=== PATIENT | female | born 1985 | race Hispanic/Latino ===

== ENCOUNTER 2024-01-10 07:08 | Emergency (ER) | payer OTHER ==
[~2024-01-10] VITALS: Ht 157.5 cm; Wt 56.2 kg
[2024-01-10 07:43] LABS: APPEARANCE,URINE CLEAR (CLEAR); BILIRUBIN,URINE NEGATIVE (NEGATIVE); COLOR,URINE LIGHT-YELLOW (YELLOW); GLUCOSE, URINE (UA) NEGATIVE (NEGATIVE); KETONES,URINE NEGATIVE (NEGATIVE); LEUKOCYTE ESTERASE ,URINE NEGATIVE Leu/uL (NEGATIVE); NITRATE,URINE NEGATIVE (NEGATIVE); OCCULT BLOOD,URINE NEGATIVE (NEGATIVE); PROTEIN,URINE NEGATIVE (NEGATIVE); UROBILINOGEN,URINE 0.2 mg/dL (0.2-1.0)
[2024-01-10 07:47] LABS: ADD UA MICROSCOPIC NO
[2024-01-10] MEDS: KETOROLAC 15MG/ML VIAL (15MG/ML) IM ONE (09:39)
[2024-01-10] MEDS ORDERED: IBUP-2070 PO (11:32)
[2024-01-10 11:37] VITALS: BP 128/72; PULSE 68; RESP 18; O2SAT 100
== END 2024-01-10 11:40 | disposition home or self-care (01) ==
LOC: EDH 07:08
DX: S62.392A Other fracture of third metacarpal bone, right hand, initial encounter for closed fracture (principal); M54.50 Low back pain, unspecified; M54.2 Cervicalgia; Z90.710 Acquired absence of both cervix and uterus; V49.88XA Car occupant (driver) (passenger) injured in other specified transport accidents, initial encounter; Y93.I9 Activity, other involving external motion; Y92.488 Other paved roadways as the place of occurrence of the external cause; Y99.8 Other external cause status
CPT/HCPCS: 99285; 72125; 81003; 81025; 73130; 29125; 96372; J1885

== ENCOUNTER 2025-05-24 11:01 | Emergency (ER) | payer SELFPAY ==
[~2025-05-24] VITALS: Ht 157.5 cm; Wt 54.4 kg
[~2025-05-24 11:01] MED LIST: IBUP-1492 PO
--- NOTE | 2025-05-24 11:30 | EKG ---
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
--- NOTE | 2025-05-24 11:46 | ERN ---
ED Note History of Present Illness Stated Complaint: ANXIETY Chief Complaint: Anxiety/Panic Attack Time Seen by MD: 11:03 Time Seen by Midlevel: 11:05 Dictation: 39-year-old female with no medical problems coming in for complaints of anxiety that led to her having chest pain. Patient states it is episode started while she was driving. Patient states she has had these symptoms for the last year. Does not take any medications for anxiety. Denies any cough, congestion, shortness a breath, fever. Allergies: Coded Allergies: No Known Drug Allergies (Unverified Allergy, Unknown, 01/10/24) Home Meds Active Scripts Ibuprofen (Ibuprofen) 600 Mg Tablet, 600 MG PO Q6H PRN for PAIN, #20 TAB Prov:TITO COLE MD 01/10/24 Past Medical History Past Medical History: No Pertinent History Surgical History: Hysterectomy Review of System Dictation Constitutional: Negative for fever,chills, and weight loss Eyes: Negative for injury, pain,redness, and discharge ENT: Negative for injury,pain or swelling Cardiovascular: Complaining of chest pain, no palpitations, and no edema Respiratory: Negative for shortness of breath, cough, and wheezing, Abdomen/GI: Negative for abdominal pain, nausea, vomiting, diarrhea, and constipation Back: Negative for injury and pain : Negative for injury, bleeding and discharge MS/Extremity: Negative for injury and deformity Skin: Negative for rash, and discoloration Neuro: Negative for headache, weakness, numbness, tingling, and seizure Psych: Negative for suicide ideation, homicidal ideation, and hallucinations, anxious Review of Systems: was completed Initial Vital Sign VS Vital Signs Date Time Temp Pulse Resp B/P (MAP) Pulse Ox O2 Delivery O2 Flow Rate FiO2 05/24/25 11:03 98.2 128 22 139/95 97 Room Air 0 05/24/25 11:07 21 Physical Exam Dictation General: awake, alert, NAD Head/Face: Normocephalic, atraumatic Eyes: PERRL, EOMI, vision at baseline ENT: oral cavity clear, TMs clear, no signs of infection Neck: Trachea midline, supple, no nuchal rigidity Cardiovascular: RRR, normal S1/S2, No MRGs, no JVD Respiratory: CTAB, no respiratory distress, No rales or wheezes Abdomen: Soft, non-tender, non-distended, normal bowel sounds, no guarding or rebound. Skin: Warm, dry, normal turgor, no rash MS/Extremity: Pulses equal, no cyanosis, neurovascular intact, FROM Neuro: COAx4, GCS 15, strength 5/5, CN 2-12 intact, normal cerebellar exam, normal gait, Psych: Normal behavior, mood, and affect normal Results (Laboratory/Radiology) Laboratory/Radiology Laboratory Tests Test 05/24/25 11:26 05/24/25 12:11 White Blood Count 10.6 K/uL (4.8-10.8) Red Blood Count 4.60 MIL/uL (4.00-5.50) Hemoglobin 14.3 g/dL (12.0-16.0) Hematocrit 42.5 % (36-48) Mean Corpuscular Volume 92.4 fL (79-99) Mean Corpuscular Hemoglobin 31.1 pg (27.0-33.0) Mean Corpuscular Hemoglobin Concent 33.6 g/dL (32.0-36.0) Red Cell Distribution Width 12.9 % (11.0-15.5) Platelet Count 269 K/uL (130-400) Mean Platelet Volume 10.3 fL (7.5-10.5) Immature Granulocyte % (Auto) 0.4 % (0-1) Neutrophils (%) (Auto) 67.0 % (40.0-77.0) Lymphocytes (%) (Auto) 23.9 % (21.0-51.0) Monocytes (%) (Auto) 7.2 % (3.0-13.0) Eosinophils (%) (Auto) 0.6 % (0.0-8.0) Basophils (%) (Auto) 0.9 % (0.0-5.0) Neutrophils # (Auto) 7.1 K/uL (1.8-7.7) Lymphocytes # (Auto) 2.5 K/uL (1.0-4.8) Monocytes # (Auto) 0.8 K/uL (0.1-1.0) Eosinophils # (Auto) 0.06 K/uL (0.00-0.70) Basophils # (Auto) 0.09 K/uL (0.00-0.20) Absolute Immature Granulocyte (auto 0.04 K/uL (0-1) Nucleated Red Blood Cells 0.0 % (0.0-0.19) Sodium Level 137 mmol/L (136-145) Potassium Level 3.7 mmol/L (3.5-5.1) Chloride Level 98 mmol/L (101-111) L Carbon Dioxide Level 24 mmol/L (21-32) Blood Urea Nitrogen 5 mg/dL (7-18) L Creatinine 0.6 mg/dL (0.5-1.0) Glomerular Filtration Rate Calc 116 mL/min (>90) Random Glucose 79 mg/dL (70-105) Total Calcium 10.0 mg/dL (8.5-10.1) Troponin I High Sensitivity 8 ng/L (4-50) Urine Color LIGHT-YELLOW (YELLOW) Urine Appearance CLEAR (CLEAR) Urine pH 5.5 (5.0-8.0) Urine Specific [place] 1.008 (1.001-1.031) Urine Protein NEGATIVE mg/dL (NEGATIVE) Urine Glucose (UA) NEGATIVE mg/dL (NEGATIVE) Urine Ketones NEGATIVE mg/dL (NEGATIVE) Urine Occult Blood NEGATIVE (NEGATIVE) Urine Nitrate NEGATIVE (NEGATIVE) Urine Bilirubin NEGATIVE mg/dL (NEGATIVE) Urine Urobilinogen 0.2 mg/dL (0.2-1.0) Urine Leukocyte Esterase NEGATIVE Sergio/uL Urine Opiates Screen NEGATIVE (NEGATIVE) Urine Barbiturates Screen NEGATIVE (NEGATIVE) Urine Phencyclidine Screen NEGATIVE (NEGATIVE) Urine Amphetamines Screen NEGATIVE (NEGATIVE) Urine Benzodiazepines Screen NEGATIVE (NEGATIVE) Urine Cocaine Screen NEGATIVE (NEGATIVE) Urine Marijuana (THC) Screen NEGATIVE (NEGATIVE) Labs Reviewed?: Yes EKG Comment: EKGs done at 11:27 a.m.. Sinus tachycardia at 1:13 a.m.. No STEMI interpreted by ER MD X-RAY Comment: [address] [address] IMAGING REPORT Signed PATIENT: ANIRUDH SARAVIA MR#: [id number] : 1985 SEX: F AGE: 39 LOCATION: [facility] ORDER 08 STATUS: REG ER REPORT#: [id number] SERVICE 110 REASON: cp ORDERING PHYSICIAN: MCKEE,CLARIBEL HAZARD MITIGATION OFFICER PROCEDURE: CXR1VW - CHEST 1VW EXAM: CR Chest, 1 View. CLINICAL HISTORY: cp COMPARISON: None provided. FINDINGS: LUNGS: The lungs show no infiltrate or other acute finding. PLEURAL SPACES: No pleural effusion or pneumothorax. MEDIASTINUM: Cardiac size and mediastinal contours within normal limits. BONES: No aggressive appearing osseous lesion seen. IMPRESSION: No acute cardiopulmonary pathology is evident. /[place] DICTATED BY: CARIDAD PRASAD Jr., MD DATE: 05/24/251418 ELECTRONICALLY SIGNED BY: CARIDAD PRASAD Jr., MD DATE: 05/24/251418 ED Course ED Course Orders Procedure Category Date Status Time Basic Metabolic Panel LAB 05/24/25 Complete 11:07 Troponin I High LAB 05/24/25 Complete Sensitivity 11:07 12 Lead Ekg Tracing- EKG 05/24/25 Complete Technical 11:07 Chest 1vw RAD 05/24/25 Resulted 11:07 Urinalysis Profile LAB 05/24/25 Complete 11:07 Drug Screen Urine LAB 05/24/25 Complete 11:07 0.9%Nacl 1000ml (Ns PHA 05/24/25 Complete 1000ml) 11:07 Aspirin 81mg Chew Tab PHA 05/24/25 Complete (Aspirin 81mg Chew 11:07 Hydroxyzine 50mg Vial PHA 05/24/25 Complete (Atarax 50mg Inj) 11:07 Cbc With Differential LAB 05/24/25 Complete 11:07 Hydroxyzine 25mg Tab PHA 05/24/25 Complete (Atarax 25mg Tab) 12:30 Current Medications Medications (Trade) Dose Ordered Sig/Henry Route PRN Reason Start Time Stop Time Status Last Admin Dose Admin Aspirin (Aspirin 81mg Chew Tab) 324 mg ONCE STAT PO 05/24/25 11:07 05/24/25 11:11 DC 05/24/25 12:07 Hydroxyzine HCl (ATArax 25MG TAB) 25 mg ONCE ONCE PO 05/24/25 12:30 05/24/25 12:31 DC 05/24/25 12:35 Hydroxyzine HCl (ATArax 50MG INJ) 25 mg ONCE STAT IM 05/24/25 11:07 05/24/25 12:22 DC Sodium Chloride 1,000 ml @ 1,000 mls/hr Q1H STAT IV 05/24/25 11:07 05/24/25 12:06 DC 05/24/25 12:07 Vital Signs Date Time Temp Pulse Resp B/P (MAP) Pulse Ox O2 Delivery O2 Flow Rate FiO2 05/24/25 12:00 98.2 92 20 129/88 97 Room Air* 0 21 05/24/25 11:07 98.2 114 20 139/95 99 Room Air* 0 21 05/24/25 11:03 98.2 128 22 139/95 97 Room Air 0 HEART Score Response (Comments) Value History: Low suspicion (0) 0 EKG: Normal 0 Age: < 45yrs (0) 0 Risk Factors: No known risk factors (0) 0 Initial Troponin: Normal limit (0) 0 Total 0 Medical Decision Making MDM MDM: 39-year-old female with no medical problems coming in for complaints of anxiety that led to her having chest pain. Patient states it is episode started while she was driving. Patient states she has had these symptoms for the last year. Does not take any medications for anxiety. Denies any cough, congestion, shortness a breath, fever.CBC shows a leukocytosis, no anemia, no thrombocytopenia. Chemistry shows no electrolyte abnormality. Kidney function within normal range. Troponin is negative. UA shows no evidence of urine tract infection. Radiology Teacher negative. EKGs did not show any ST elevations or dysrhythmias. After hydroxyzine patient states feels much better. Vital signs have improved. Educated patient needs to follow up with PCP and I will give prescription for the hydroxyzine. Patient verbalized understanding, answered all questions. Differential diagnosis: Anxiety, ACS, arrhythmia, dehydration, electrolyte abnormality Rationale: Tests considered and ordered secondary to shared decision making include: Previous outside records reviewed: Old ER visits. Risk of complication and/or morbidity or mortality of patient management: None Medications-Per medication reconciliation Need for hospitalization: Patient does not meet criteria for hospitalization. Need for emergency major/minor surgery: No There are no social concerns with this patient. Prescription drug management Prescriptions will include symptomatic care Patient's prior external medical records from other ER visits were reviewed by me as indicated. Prior testing and results from previous visits were reviewed. Prior tests were taken into account with medical decision making and resource utilization, independent historian/historians were used to obtain complete medical history. I independently interpreted the test that were performed, results were reviewed by me and considered findings on radiology if ordered. Medical management and examination interpretation discussions were had by me with other qualified healthcare professionals as indicated for the patient's care. DX & DISP Disposition: Discharge Departure Impression: Primary Impression: Anxiety Condition: Stable Scripts Hydroxyzine HCl (Hydroxyzine HCl) 25 Mg Tablet 1 TAB PO BID for anxiety for 10 Days, #20 TAB 0 Refills Prov: CLARIBEL MCKEE NP 05/24/25 Additional Instructions: Follow up with PCP. Return to the hospital as needed. Referrals: SELF,REFERRAL (PCP) Time of Disposition: 14:28 I have reviewed the case, and I agree with, Diagnosis and Plan CLARIBEL MCKEE NP May 24, 2025 11:46
[2025-05-24] MEDS: 0.9%NACL 1000ML 1,000 ML IV STA (12:07)
[2025-05-24] MEDS: ASPIRIN 81MG CHEW TAB PO STA (12:07)
[2025-05-24 12:12] LABS: IMMATURE GRANULOCYTE ABSOLUTE 0.04 K/uL (0-1); NUCLEATED RED BLOOD CELLS 0.0 % (0.0-0.19); PLATELET COUNT (AUTO) 269 K/uL (130-400); RED BLOOD CELL COUNT(AUTO) 4.60 MIL/uL (4.00-5.50); RED CELL DISTRIBUTION WIDTH 12.9 % (11.0-15.5); WHITE BLOOD COUNT (AUTO) 10.6 K/uL (4.8-10.8)
[2025-05-24 12:24] LABS: CREATININE 0.6 mg/dL (0.5-1.0); GLOMERULAR FILTR. RATE CALC 116.0 mL/min (>90); GLUCOSE,RANDOM 79.0 mg/dL (70-105); SODIUM SERUM 137.0 mmol/L (136-145); UREA NITROGEN, BLOOD 5.0 mg/dL (7-18)
--- NOTE | 2025-05-24 13:21 | HMCIMG ---
EXAM: CR Chest, 1 View. CLINICAL HISTORY: cp COMPARISON: None provided. FINDINGS: LUNGS: The lungs show no infiltrate or other acute finding. PLEURAL SPACES: No pleural effusion or pneumothorax. MEDIASTINUM: Cardiac size and mediastinal contours within normal limits. BONES: No aggressive appearing osseous lesion seen. IMPRESSION: No acute cardiopulmonary pathology is evident. /[place]
[2025-05-24 13:55] LABS: APPEARANCE,URINE CLEAR (CLEAR); GLUCOSE, URINE (UA) NEGATIVE (NEGATIVE); LEUKOCYTE ESTERASE ,URINE NEGATIVE Leu/uL (NEGATIVE); NITRATE,URINE NEGATIVE (NEGATIVE); OCCULT BLOOD,URINE NEGATIVE (NEGATIVE)
[2025-05-24 14:01] LABS: AMPHET/METH SCREEN,URINE NEGATIVE (NEGATIVE); BARBITURATE SCREEN, URINE NEGATIVE (NEGATIVE); CANNABINOID SCREEN,URINE NEGATIVE (NEGATIVE); COCAINE SCREEN,URINE NEGATIVE (NEGATIVE)
[2025-05-24 14:07] LABS: ADD UA MICROSCOPIC NO
[2025-05-24 14:24] VITALS: BP 129/88; PULSE 92; RESP 20; TEMP 98.2; O2SAT 97
[2025-05-24] MEDS ORDERED: HYDR-3421 PO (14:28)
== END 2025-05-24 14:30 | disposition home or self-care (01) ==
LOC: EDH 11:01
DX: F41.9 Anxiety disorder, unspecified (principal); Z90.710 Acquired absence of both cervix and uterus
CPT/HCPCS: 99285; 96360; 71045; 84484; 80048; 80305; 85025; 36415; 93005; 81003; J7030